=== PATIENT | male | born 1990 | race African-American/Black ===

== ENCOUNTER 2025-03-05 11:03 | Outpatient (REF) | payer MEDICAID, SELFPAY ==
--- OUTSIDE RECORDS SUMMARY | 2025-03-02 13:15 | XMS_ITS | Encounter Summary ---
Author Organization [employer] Address [address] [place] [address] [address] [address] Care Team Providers Care Boil Off Machine Operator Cloth Name Role Phone Jaime Chan Primary Care Provider [phone] Reason for Referral * Consultation (Routine) - Authorized Specialty Diagnoses / Procedures Referred By Myranda wall Referred To Contact Behavioral Health Diagnoses Positive screening for depression on 9-item Patient Health Questionnaire (PHQ-9) Procedures Referral to Behavioral Health Jaime Chan FNP [address] [place] [address] Phone: tel: fax: Referral ID Status Reason Start Date Expiration Date Visits Requested Visits Authorized [id number] Authorized Specialty Services Required 03/02/2025 03/02/2026 1 1 * Consultation (Routine) - Pending Review Specialty Diagnoses / Procedures Referred By Myranda wall Referred To Contact Bariatrics Diagnoses Obesity, morbid (more than 100 lbs over ideal weight or BMI > 40) (CMS/HCC) (HCC) Jaime Chan FNP [address] [place] [address] Phone: tel: fax: Referral ID Status Reason Start Date Expiration Date Visits Requested Visits Authorized [id number] Pending Review Specialty Services Required 03/02/2025 03/02/2026 1 1 * Consultation (Routine) - Pending Review Specialty Diagnoses / Procedures Referred By Myranda t Referred To Contact Physical Therapy Diagnoses Acute left-sided low back pain without sciatica Jaime Chan FNP [address] [place] [address] Phone: tel: fax: Referral ID Status Reason Start Date Expiration Date Visits Requested Visits Authorized [id number] Pending Review Specialty Services Required 03/02/2025 03/02/2026 1 1 * Consultation (Routine) - Authorized Specialty Diagnoses / Procedures Referred By Myranda t Referred To Contact Nutrition Diagnoses Obesity, morbid (more than 100 lbs over ideal weight or BMI > 40) ([facility]/HCC) ([facility]) Jaime Chan FNP [address] [place], [place] Phone: tel: fax: Referral ID Status Reason Start Date Expiration Date Visits Requested Visits Authorized [id number] Authorized Consult and Treat 03/02/2025 03/02/2026 1 1 * Consultation (Routine) - Pending Review Specialty Diagnoses / Procedures Referred By Myranda wall Referred To Contact Optometry Diagnoses Healthcare maintenance Jaime Chan FNP [address] [place], [place] Phone: tel: fax: Referral ID Status Reason Start Date Expiration Date Visits Requested Visits Authorized [id number] Pending Review Specialty Services Required 03/02/2025 03/02/2026 1 1 Encounter Details Date Type Department Care Team (Latest Contact Info) Description 03/02/2025 1:15 PM EDT Office Visit [facility] [address] [place], [place] [phone] Jaime Chan FNP [address] [place], [place] Obesity, morbid (more than 100 lbs over ideal weight or BMI > 40) (CMS/HCC) (HCC) (Primary Dx); Acute left-sided low back pain without sciatica; Dietary counseling; Exercise counseling; Healthcare maintenance; Positive screening for depression on 9-item Patient Health Questionnaire (PHQ-9); Encounter for immunization; Encounter for vaccination Social History Tobacco Use Types Packs/Day Years Used Date Smoking Tobacco: Never Passive Smoke Exposure: Never Smokeless Tobacco: Never Alcohol Use Standard Drinks/Week Comments Never 0 (1 standard drink = 0.6 oz pur e alcohol) Depression Answer Date Recorded Patient Health Questionnaire-9 Score 7 03/02/2025 Patient Health Questionnaire-9 Score 7 03/02/2025 Last PHQ-9: Questionnaire Data Not on file 1 Housing Stability Answer Date Recorded What is your housing situation today? I have ronal [place]ton 03/02/[address] you li ve. Do you have problems with any of the following? None of the above 03/02/2025 Food Insecurity Answer Date Recorded Within the past 12 months, y ou worried that your food would run out before you got money to buy more: Never True 03/02/2025 Within the past 12 months,th e food you bought just didn't last and you didn't have enough money to get more: Never True 07/2024 Transportation Answer Date Recorded In the past 12 months, has l ack of transportation kept you from medical appts, meetings, work or from getting things needed for daily living? No 03/02/2025 Utilities Answer Date Recorded In the past 12 months, has t he electric, gas, oil or water company threatened to shut off services in your home? No 03/02/2025 Depression Answer Date Recorded Patient Health Questionnaire-2 Score 3 03/02/2025 Internet Access Answer Date Recorded Internet Access Q1 No 03/02/2025 Internet Access Q2 I do not want or need it 07/2024 Sex and Gender Information Value Date Recorded Sex Assigned at Male 02/09/2025 9:52 AM EDT Legal Sex Male 2:44 AM EDT Gender Identity Male 02/09/2025 9:52 AM EDT Sexual Orientation Straight 02/28/2025 3: 58 PM EDT documented as of this encounter Last Filed Vital Signs Vital Sign Reading Time Taken Comments Blood Pressure 146/89 03/02/2025 1:08 PM EDT Pulse 86 03/02/2025 1:08 PM EDT Temperature 37 C (98.6 F) 03/02/2025 1:08 PM EDT Respiratory Rate 17 03/02/2025 1:08 PM EDT Oxygen Saturation 98% 03/02/2025 1:08 PM EDT Inhaled Oxygen Concentration - - Weight 174 kg (384 lb 6.4 oz) 03/02/2025 1:08 PM EDT Height 182.9 cm (6') 03/02/2025 1:08 PM EDT Body Mass Index 52.13 03/02/2025 1:08 PM EDT documented in this encounter Functional Status * Over the past 2 weeks, how often have you been bothered by any of the following problems? Question Answer Date of Assessment Author Patient Health Questionnaire -2 Score 3 03/02/2025 1:15 PM EDT Breanna Dowell MA * Little interest or pleasure in doing things Answer Date of Assessment Author Several days 03/02/2025 1:15 PM EDT Tasha Dowell MA * Feeling down, depressed, or hopeless Answer Date of Assessment Author More than half the days 03/02/2025 1:15 PM EDT Breanna [place] * Trouble falling or staying asleep, or sleeping too much Answer Date of Assessment Author Several days 03/02/2025 1:15 PM EDT Tasha Dowell MA * Feeling tired or having little energy Answer Date of Assessment Author Several days 03/02/2025 1:15 PM EDT Tasha Dowell MA * Poor appetite or overeating Answer Date of Assessment Author Several days 03/02/2025 1:15 PM EDT Tasha Dowell MA * Feeling bad about yourself - or that you are a failure or have let yourself or your family down Answer Date of Assessment Author Several days 03/02/2025 1:15 PM EDT Tasha Dowell MA * Trouble concentrating on things, such as reading the newspaper or watching television Answer Date of Assessment Author Not at all 03/02/2025 1:15 PM EDT Tasha Dowell MA * Moving or speaking so slowly that other people could have noticed? Or the opposite - being so fidgety or restless that you have been moving around a lot more than usual. Answer Date of Assessment Author Not at all 03/02/2025 1:15 PM EDT Tasha Dowell MA * Thoughts that you would be better off or hurting yourself in some way Answer Date of Assessment Author Not at all 03/02/2025 1:15 PM BRANDONT Tasha Dowell MA * Patient Health Questionnaire-9 Score Answer Date of Assessment Author 7 03/02/2025 1:15 PM EDT Tasha Dowell MA * How difficult have these problems made it for you to do your work, take care of things at home, or get along with other people? Answer Date of Assessment Author Somewhat difficult 03/02/2025 1:15 PM EDT Breanna Dowell MA * Over the last 2 weeks, how often have you been bothered by any of the following problems? Question Answer Date of Assessment Author Feeling nervous, anxious, or on edge 1 03/02/2025 1:15 PM EDT Breanna Dowell MA Not being able to stop or co ntrol worrying 1 03/02/2025 1:15 PM EDT Breanna Dowell MA Worrying too much about diff erent things 2 03/02/2025 1:15 PM EDT Breanna Dowell MA Trouble relaxing 1 03/02/2025 1:15 PM EDT Breanna [place] MA Being so restless that it is hard to sit still 1 03/02/2025 1:15 PM EDT Breanna Dowell MA Becoming easily annoyed or irritable 1 03/02/2025 1:15 PM BR[place]ONT Breanna Dowell MA Feeling afraid as if somethi ng awful might happen 1 03/02/2025 1:15 PM [place]ONT Breanna Dowell MA ALEXANDRA-7 Total Score 8 03/02/2025 1:15 PM Breanna Guaman MA documented as of this encounter Plan of Treatment Upcoming Encounters Date Type Department Care Team (Late st Contact Info) Description 03/22/2025 2:30 PM EDT Clinical Support [address] [address] Scheduled Orders Name Type Priority Associated Diagnoses Orde r Schedule Hepatic Function Panel Lab Routine Obesity, morbid (more than 100 lbs over ideal weight or BMI > 40) (CMS/HCC) (HCC) Expected: 03/02/2025 (Approximate), Expires: 03/02/2026 Basic Metabolic Panel Lab Routine Obesity, morbid (more than 100 lbs over ideal weight or BMI > 40) (CMS/HCC) (HCC) Expected: 03/02/2025 (Approximate), Expires: 03/02/2026 CBC auto differential Lab Routine Obesity, morbid (more than 100 lbs over ideal weight or BMI > 40) (CMS/HCC) (HCC) Expected: 03/02/2025 (Approximate), Expires: 03/02/2026 TSH W/Reflex to FT4 Lab Routine Obesity, morbid (more than 100 lbs over ideal weight or BMI > 40) (CMS/HCC) (HCC) Expected: 03/02/2025 (Approximate), Expires: 03/02/2026 Hemoglobin A1c Lab Routine Obesity, morbid (more than 100 lbs over ideal weight or BMI > 40) (CMS/HCC) (HCC) Expected: 03/02/2025 (Approximate), Expires: 03/02/2026 HIV-1/2 Antigen and Antibodies, Fourth Generation, with Reflexes Lab Routine Healthcare maintenance Expected: 03/02/2025 (Approximate), Expires: 03/02/2026 Syphilis Screen Lab Routine Healthcare maintenance Expected: 03/02/2025, Expires: 03/02/2026 Hepatitis C Antibody with Reflex to HCV, RNA, Quantitative, Real-Time PCR Lab Routine Healthcare maintenance Expected: 03/02/2025, Expires: 03/02/2026 Hepatitis B Surface Antibody, Qualitative Lab Routine Healthcare maintenance Expected: 03/02/2025 (Approximate), Expires: 03/02/2026 Hepatitis B surface antigen, EIA Lab Routine Healthcare maintenance Expected: 03/02/2025 (Approximate), Expires: 03/02/2026 Hepatitis B Core Antibody, Total Lab Routine Healthcare maintenance Expected: 03/02/2025 (Approximate), Expires: 03/02/2026 Chlamydia/N. Gonorrhoeae, PCR, Urine Lab Routine Healthcare maintenance Ordered: 03/02/2025 Scheduled Referrals Name Type Priority Associated Diagnoses Orde r Schedule Referral to Optometry Outpatient Referral Routine Healthcare maintenance Expected: 03/02/2025 (Approximate), Expires: 03/02/2026 Referral to Nutrition Therapy Outpatient Referral Routine Obesity, morbid (more than 100 lbs over ideal weight or BMI > 40) ([facility]) ([facility]) Expected: 03/02/2025 (Approximate), Expires: 03/02/2026 Referral to Physical Therapy Outpatient Referral Routine Acute left-sided low back pain without sciatica Expected: 03/02/2025 (Approximate), Expires: 03/02/2026 Referral to Bariatric Surgery Outpatient Referral Routine Obesity, morbid (more than 100 lbs over ideal weight or BMI > 40) ([facility]) (HCC) Expected: 03/02/2025 (Approximate), Expires: 03/02/2026 documented as of this encounter Visit Diagnoses Diagnosis Obesity, morbid (more than 100 lbs over ideal weight or BMI > 40) ([facility]) ([facility])- Primary Acute left-sided low back pain without sciatica Dietary counseling Dietary surveillance and counseling Exercise counseling Healthcare maintenance Positive screening for depression on 9-item Patient Health Questionnaire (PHQ-9) Encounter for immunization Encounter for vaccination documented in this encounter Additional Health Concerns Assessment Noted Time PHQ-9 Depression Total Score: 7 03/02/20 25 1:15 PM EDT documented as of this encounter Care Teams Boil Off Machine Operator Cloth Relationship Specialty Start Date End Date Jaime Chan FNP [address] [place] [id number] PCP - General Family Medicine 03/02/25 documented as of this encounter
[2025-03-05 13:30] LABS: MANUAL DIFF FLAG NO
[2025-03-05 13:33] LABS: Hematocrit 44.5 % (42.0-52.0); Hemoglobin 15.1 g/dl (14.0-18.0); Imm Gran Abs Auto 0.00 X10*3/uL (0.00-0.03); Imm Gran Pct Auto 0.0 % (0.0-0.4); Lymphocytes Absolute Auto 2.6 X10*3/uL (1.2-4.9); Mean Corpuscular HGB Conc 33.9 g/dl (31.0-36.0); Mean Corpuscular Hemoglobin 30.5 pg (27.0-33.0); Mean Corpuscular Volume 89.9 fL (80.0-98.0); NRBC Abs Auto 0.000 X10*3/uL (0.0-0.012); NRBC Pct Auto 0.0 /100WBC (0.0-0.2); Platelet Count 271 X10*3/uL (160-400); Red Blood Count 4.95 X10*6/uL (4.60-5.80); White Blood Count 5.4 X10*3/uL (4.8-10.8)
--- OUTSIDE RECORDS SUMMARY | 2025-03-05 13:33 | XMS_ITS | Encounter Summary ---
Author Organization [employer] Address [address] [facility] 7[address] [place] [address] Care Team Providers Care Window Decorator Name Role Phone Unavailable Primary Care Provider Unavailabl e Reason for Visit * Reason Onset Date Comments Chart Prep 03/01/2025 Encounter Details Date Type Department Care Team ([facility] st Contact Info) Description 03/01/2025 Telephone [facility] [address] [place] [address] Jaime Chan FNP [address] [place] [address] Chart Prep Social History Tobacco Use Types Packs/Day Years Used Date Smoking Tobacco: Never Assessed Depression Answer Date Recorded Patient Health Questionnaire-9 [...] PM EDT documented as of this encounter Miscellaneous Notes * Telephone Encounter - Breanna Dowell MA - 03/01/2025 11:51 AM EDT Chart Prep Labs: not applicable Images: not applicable Referrals: not applicable Vaccines due: Covid, Flu, Hep B, HPV, and DTAP Screenings: Alcohol/Substance Use Screening Overdue care gaps: SBIRT, SDOH, PHQ-9, ALEXANDRA-7, and Tobacco documented in this encounter Plan of Treatment Upcoming Encounters Date Type Department Care Team (Late st Contact Info) Description 03/22/2025 2:30 PM EDT Clinical Support [facility] [address] [place] [phone] documented as of this encounter Visit Diagnoses Not on filedocumented in this encounter
--- OUTSIDE RECORDS SUMMARY | 2025-03-05 13:33 | XMS_ITS | Encounter Summary ---
Author Organization [employer] Address [address] [facility] 7t [place] [address] Care Team Providers Care Tax Services Professional Name Role Phone Unavailable Primary Care Provider Unavailabl e Encounter Details Date Type Department Care Team (Latest Contact Info) Description 02/28/2025 Travel Social History Tobacco Use Types Packs/Day Years Used Date Smoking Tobacco: Never Assessed Sex and Gender Information Value Date Recorded Sex Assigned at Male 02/09/2025 9:52 AM EDT Legal Sex Male 2:44 AM EDT Gender Identity Male 02/09/2025 9:52 AM EDT Sexual Orientation Straight 02/28/2025 3: 58 PM EDT documented as of this encounter Plan of Treatment Upcoming Encounters Date Type Department Care Team (Late st Contact Info) Description 03/22/2025 2:30 PM EDT Clinical Support [facility] [address] [place] [phone] documented as of this encounter Visit Diagnoses Not on filedocumented in this encounter
--- OUTSIDE RECORDS SUMMARY | 2025-03-05 13:33 | XMS_ITS | Encounter Summary ---
Author Organization [employer] Address [address] [facility] 7t [place] [address] Care Team Providers Care Farm Planner Name Role Phone Chan, Jaime ALEXANDER Primary Care Provider [phone] Encounter Details Date Type Department Care Team (Latest Contact Info) Description 03/02/2025 Travel Social History Tobacco Use Types Packs/Day [...] PM EDT documented as of this encounter Functional Status * Over the [...] 1:15 PM EDT Tasha Dowell MA * Patient Health Questionnaire-9 [...] annoyed or irritable 1 03/02/2025 1:15 PM EDT Breanna Dowell MA Feeling afraid as if somethi ng awful might happen 1 03/02/2025 1:15 PM EDT Breanna Dowell MA ALEXANDRA-7 Total Score 8 03/02/2025 1:15 PM EDT Breanna Dowell MA documented as of this encounter Plan of Treatment Upcoming Encounters Date Type Department Care Team (Late st Contact Info) Description 03/22/2025 2:30 PM EDT Clinical Support [facility] [address] [place] [address] documented as of this encounter Visit Diagnoses Not on filedocumented in this encounter Additional Health Concerns Assessment Noted Time PHQ-9 Depression Total Score: 7 03/02/20 25 1:15 PM EDT documented as of this encounter Care Teams Farm Planner Relationship Specialty Start Date End Date Jaime Chan FNP [address] [place] [id number] PCP - General Family Medicine 03/02/25 documented as of this encounter
--- OUTSIDE RECORDS SUMMARY | 2025-03-05 13:33 | XMS_ITS | Clinical Summary ---
Author Organization [facility] Address [address] [facility] 7t [place] [address] Care Team Providers Care Bottom Loader Name Role Phone Jaime Chan Primary Care Provider [phone] Allergies No known active allergies Medications naproxen (Naprosyn) 500 MG tablet Take 1 tablet (500 mg) by mouth 2 times daily. 60 tablet 03/02/2025 Active Encounters Date Type Department Care Team Description 03/02/2025 1:15 PM EDT Office Visit [facility] [address] [place] [address] Jaime Chan FNP Obesity, morbid (more than 100 lbs over ideal weight or BMI > 40) (CMS/HCC) (HCC) (Primary Dx); Acute left-sided low back pain without sciatica; Dietary counseling; Exercise counseling; Healthcare maintenance; Positive screening for depression on 9-item Patient Health Questionnaire (PHQ-9); Encounter for immunization; Encounter for vaccination 03/02/2025 Travel 03/01/2025 Telephone [facility] [address] [place] [address] Jaime Chan FNP Chart Prep 02/28/2025 Travel 02/09/2025 Telephone [facility] ENROLLMENT [address] [place] [address] Yesi Hess MD New Patient appt. 01/31/2025 Population Health Risk Score [facility] () Department [address] [phone] Provider, Population Health Generic from Last 3 Months Immunizations Immunization Administration Dates Next Due Influenza, seasonal, injectable, preservative fr ee 03/02/2025 Pfizer Covid-19 Vaccine 12+ 03/02/2025 Social History Tobacco Use Types Packs/Day Years [...] your housing situation today? I have ronal [place]rest 03/02/[address] you li [...] Orientation Straight 02/28/2025 3: 58 PM EDT Last Filed Vital Signs Vital Sign Reading [...] Mass Index 52.13 03/02/2025 1:08 PM EDT Plan of Treatment Upcoming Encounters Date Type Department Care Team (Late st Contact Info) Description 03/22/2025 2:30 PM EDT Clinical Support [address] [id number] Health Maintenance Due Date Last Done Comments HIV Screening 1991 Lipid Panel 1991 Family Planning (PISQ) 2006 HPV Vaccines (1 - Male 3-dos e series) 2006 Hepatitis C Screening 2009 DTaP/Tdap/Td Vaccines (1 - Tdap) 2010 Hepatitis B Vaccines (1 of 3 - 19+ 3-dose series) 2010 Disability Screening 02/28/2026 02/28/2025 Alcohol/Substance Use Screening 03/02/2026 03/02/2025 Depression Screening 03/02/2026 03/02/2025, 03/02/2025 SDOH Screening 03/02/2026 03/02/2025 Tobacco Screening 03/02/2026 03/02/2025 Zoster Vaccines (1 of 2) 2041 RSV Patients and Patients Aged 60 years or older (1 - 1-dose 75+ series) 2066 COVID-19 Vaccine Completed 03/02/2025 Influenza Vaccine Completed 03/02/2025 HIB Vaccines Aged Out No longer eligi ble based on patient's age to complete this topic Hepatitis A Vaccines Aged Out No long er eligible based on patient's age to complete this topic IPV Vaccines Aged Out No longer eligi ble based on patient's age to complete this topic Meningococcal B Vaccine Aged Out No l onger eligible based on patient's age to complete this topic Meningococcal Vaccine Aged Out No annita daniel eligible based on patient's age to complete this topic Pneumococcal Vaccine: Pediatrics (0 to 5 Years) and At-Risk Patients (6 to 49) Years Aged Out No longer eligible b ased on patient's age to complete this topic RSV under 20 months Aged Out No longe r eligible based on patient's age to complete this topic Rotavirus Vaccines Aged Out No longer eligible based on patient's age to complete this topic Insurance [facility] C3 Care Teams Bottom Loader Relationship Specialty Start Date End Date Jaime Chan FNP [address] [place] [id number] PCP - General Family Medicine 03/02/25
[2025-03-05 13:57] LABS: Alanine Aminotransferase 39 U/L (0-40); Albumin Level 4.5 g/dL (3.5-5.0); Alkaline Phosphatase 95 U/L (39-117); Anion Gap 9 (12-20); Aspartate Amino Transferase 25 U/L (5-37); Blood Urea Nitrogen 10 mg/dL (9-16); Calcium 8.9 mg/dL (8.4-10.2); Carbon Dioxide 28 mmol/L (22-29); Chloride 106 mmol/L (96-108); Estimated Glomerular Filt Rate > 60; Potassium 3.9 mmol/L (3.3-5.1); Sodium 139 mmol/L (135-145); Total Protein 7.5 g/dL (6.5-8.0)
[2025-03-05 14:05] LABS: HBS Num1 0.00 mIU/mL (0-7.99); HBc Num1 0.08 S/CO (0.00-0.79); HBsAGNum1 0.31 S/CO (0.00-0.99); HIV Num 1 0.04 S/CO (0.00-0.99); Hepatitis B Surface Antigen Negative (Negative); ~HepC Num1 0.11 S/CO (0.00-0.79); ~Hepatitis B Surface Antibody NONREACTIVE (Nonreactive); ~Hepatitis C Antibody Nonreactive (Nonreactive)
[2025-03-05 14:07] LABS: Syphilis Screen Nonreactive (Nonreactive)
== END 2025-03-05 11:04 | disposition home or self-care (01) ==
LOC: HO.HHCL 11:03
DX: Z00.00 Encounter for general adult medical examination without abnormal findings (principal); Z11.4 Encounter for screening for human immunodeficiency virus [HIV]; Z11.59 Encounter for screening for other viral diseases; E66.01 Morbid (severe) obesity due to excess calories
CPT/HCPCS: 36415; 80048; 80076; 83036; 84443; 85025; 86704; 86706; 86780; 86803; 87340; 87389